=== PATIENT | male | born 1955 | race Caucasian/White ===

== ENCOUNTER 2020-05-15 01:20 | Inpatient (IN) ==
[2020-05-15] MEDS ORDERED: Naloxone 0.4 MG/ML INJ IVP PRN (01:42)
[2020-05-15] MEDS: Ondansetron 4 MG/2 ML VIAL IVP PRN ×3 (02:42→20:45)
[2020-05-15] MEDS: DilTIAZem 50 MG/50 ML IV.SOLN IVC SCH ×5 (03:34→23:02)
[2020-05-15 04:00] LABS: Basophils % 0.5 %; Eosinophils % 0.3 %; Hematocrit 46.6 % (37.5-50.1); Hemoglobin 14.9 g/dL (12.9-16.9); Immature Granulocytes % 0.3 % (0-4); Lymphocytes # 1.5 K/mcL (0.6-4.6); Lymphocytes % 17.2 %; Mean Corpuscular Hemoglobin 30.5 pg (28.0-33.3); Mean Corpuscular Volume 95.5 fL (83.0-100.0); Mean Platelet Volume 10.7 fL (9.4-12.4); Monocytes # 0.7 K/mcL (0.0-1.3); Monocytes % 7.3 %; Neutrophils # 6.6 K/mcL (1.6-8.9); Platelet Count 170 K/mcL (140-400); Red Blood Count 4.88 M/mcL (4.19-5.50); Red Cell Distribution Width 13.8 % (11.5-14.5); Segmented Neutrophils % 74.4 %; White Blood Count 8.9 K/mcL (4.3-11.1)
[2020-05-15] MEDS ORDERED: Perflutren Lipid Microsphere 1.3 ML in 0.9 % Sodium Chloride 8.7 ML IVP PRN (04:16)
[2020-05-15 04:22] LABS: Alanine Aminotransferase 91 Units/L (7-52); Albumin 3.9 g/dL (3.5-5.7); Albumin/Globulin Ratio 1.3 (1.1-2.2); Alkaline Phosphatase 99 Units/L (34-104); Aspartate Amino Transferase 54 Units/L (13-39); BUN/Creatinine Ratio 21 (6-26); Bilirubin,Total 0.8 mg/dL (0.3-1.0); Blood Urea Nitrogen 18 mg/dL (8-23); Calcium 9.3 mg/dL (8.6-10.3); Carbon Dioxide 33 mEq/L (23-29); Chloride 98 mEq/L (98-107); Globulin 3.1 g/dL (2.4-3.5); Glucose 139 mg/dL (70-105); Magnesium 1.7 mg/dL (1.6-2.6); Osmolality,Calculated 288 (280-300); Phosphorous 3.5 mg/dL (2.7-4.5); Potassium 3.6 mEq/L (3.5-5.1); Sodium 137 mEq/L (136-145); eGFR For African Americans > 60 (> 60); eGFR For Non-African Americans > 60 (> 60)
[2020-05-15 04:28] LABS: Troponin I 0.05 ng/mL (< 0.04)
[2020-05-15] MEDS ORDERED: *HR* Metoprolol 5 MG/5 ML VIAL IVP ONE ×4 (04:54→06:50)
[2020-05-15] MEDS: Acetaminophen 325 MG TABLET PO PRN ×3 (04:59→20:23)
[2020-05-15] MEDS ORDERED: *HR* Heparin 5,000 UNIT/ML VIAL SQ SCH (06:00)
[2020-05-15] MEDS ORDERED: *HR* Heparin 5,000 UNIT/ML VIAL IVP PRN ×2 (06:48)
[2020-05-15] MEDS ORDERED: Isovue-370 500 ML BOTTLE IVP ONE (06:48)
[2020-05-15] MEDS ORDERED: Ondansetron 4 MG/2 ML VIAL IVP ONE (06:50)
[2020-05-15 08:42] LABS: Estimated Average Glucose 143 mg/dl; Hemoglobin A1C 6.6 %
[2020-05-15] MEDS ORDERED: Ipratropium/Albuterol Neb 3 ML ONE (10:24)
[2020-05-15] MEDS: Heparin 25,000UNIT/250ML 1/2NS 25,000 UNIT/250 ML IV.SOLN IVC SCH (10:41)
[2020-05-15] MEDS: Ipratropium/Albuterol Neb 3 ML IH SCH ×2 (10:43→20:51)
[2020-05-15 10:54] LABS: Hematocrit 47.4 % (37.5-50.1); Hemoglobin 14.7 g/dL (12.9-16.9); Mean Corpuscular Hemoglobin 29.6 pg (28.0-33.3); Mean Corpuscular Volume 95.4 fL (83.0-100.0); Mean Platelet Volume 10.4 fL (9.4-12.4); Platelet Count 176 K/mcL (140-400); Red Blood Count 4.97 M/mcL (4.19-5.50); Red Cell Distribution Width 13.9 % (11.5-14.5); White Blood Count 9.4 K/mcL (4.3-11.1)
[2020-05-15 10:59] LABS: Heparin anti-factor XA UFH 0.26 IU/mL (0.30-0.70); INR 1.2; Prothrombin Time 14.2 Seconds (9.4-12.1)
[2020-05-15] MEDS ORDERED: Venlafaxine XR (24 HR) 75 MG CAP.ER.24H PO SCH ×2 (12:07→21:00)
[2020-05-15] MEDS ORDERED: *HR* Dextrose 50 % in Water (Vial) 50 ML VIAL IVP PRN (12:21)
[2020-05-15] MEDS ORDERED: Dextrose Gel 15 GM/37.5 ML TUBE PO PRN ×2 (12:21)
[2020-05-15] MEDS ORDERED: D5% in Water 1,000 ML IVC PRN (12:21)
[2020-05-15] MEDS: Venlafaxine XR (24 HR) 150 MG CAP.ER.24H PO SCH (13:28)
[2020-05-15] MEDS ORDERED: Furosemide 40 MG/4 ML VIAL IVP ONE (13:32)
[2020-05-15] MEDS: Insulin LISPRO 300 UNITS/3 ML VIAL SUBQ SCH ×2 (17:10→20:08)
[2020-05-15] MEDS: *HR* LORazepam 0.5 MG TABLET PO SCH (20:24)
[2020-05-16 00:30] LABS: BUN/Creatinine Ratio 21 (6-26); Blood Urea Nitrogen 19 mg/dL (8-23); Calcium 9.2 mg/dL (8.6-10.3); Carbon Dioxide 31 mEq/L (23-29); Chloride 99 mEq/L (98-107); Glucose 151 mg/dL (70-105); Magnesium 2.2 mg/dL (1.6-2.6); Osmolality,Calculated 289 (280-300); Potassium 4.2 mEq/L (3.5-5.1); Sodium 137 mEq/L (136-145); eGFR For African Americans > 60 (> 60); eGFR For Non-African Americans > 60 (> 60)
[2020-05-16] MEDS: DilTIAZem 50 MG/50 ML IV.SOLN IVC SCH (02:30)
[2020-05-16] MEDS: Acetaminophen 325 MG TABLET PO PRN ×3 (03:59→20:21)
[2020-05-16] MEDS: Ipratropium/Albuterol Neb 3 ML IH SCH ×2 (07:40→19:58)
[2020-05-16] MEDS: Insulin LISPRO 300 UNITS/3 ML VIAL SUBQ SCH ×4 (08:38→21:00)
[2020-05-16] MEDS: *HR* LORazepam 0.5 MG TABLET PO SCH ×2 (08:43→21:08)
[2020-05-16] MEDS: Aspirin Enteric Coated 81 MG Tablet PO SCH (08:43)
[2020-05-16] MEDS: Venlafaxine XR (24 HR) 150 MG CAP.ER.24H PO SCH (08:44)
[2020-05-16] MEDS: lisinopriL 5 MG TABLET PO SCH (08:45)
[2020-05-16] MEDS ORDERED: Furosemide 40 MG TABLET PO SCH (09:00)
[2020-05-16] MEDS ORDERED: *HR* Heparin 5,000 UNIT/ML VIAL IVP PRN (09:17)
[2020-05-16] MEDS ORDERED: Amiodarone Premix 150 MG/100 ML BAG IVPB ONE (09:19)
[2020-05-16] MEDS ORDERED: Amiodarone Premix 360 MG/200 ML BAG IVC ONE (09:19)
[2020-05-16] MEDS: Heparin 25,000UNIT/250ML 1/2NS 25,000 UNIT/250 ML IV.SOLN IVC SCH ×2 (11:53→15:47)
[2020-05-16] MEDS ORDERED: Furosemide 40 MG/4 ML VIAL IVP ONE (12:31)
[2020-05-16] MEDS: *HR* Metoprolol 5 MG/5 ML VIAL IVP PRN (16:54)
[2020-05-16] MEDS ORDERED: Warfarin perPT PO PRN (18:00)
[2020-05-16] MEDS ORDERED: *HR* Warfarin 5 MG TABLET PO ONE (18:00)
[2020-05-16] MEDS: *HR* Heparin 5,000 UNIT/ML VIAL IVP PRN (18:23)
[2020-05-16] MEDS: DilTIAZem 50 MG in 0.9 % Sodium Chloride 40 ML IVC SCH (19:26)
[2020-05-16] MEDS: Amiodarone Premix 360 MG/200 ML BAG IVC SCH (21:38)
[2020-05-17 00:41] LABS: Basophils # 0.1 K/mcL (0.0-0.2); Basophils % 0.6 %; Eosinophils # 0.2 K/mcL (0.0-0.6); Eosinophils % 2.1 %; Hematocrit 46.1 % (37.5-50.1); Hemoglobin 14.5 g/dL (12.9-16.9); INR 1.2; Immature Granulocytes % 0.2 % (0-4); Lymphocytes % 23.5 %; Mean Corpuscular HGB Conc 31.5 g/dL (31.6-35.5); Mean Corpuscular Hemoglobin 30.8 pg (28.0-33.3); Mean Corpuscular Volume 97.9 fL (83.0-100.0); Mean Platelet Volume 10.5 fL (9.4-12.4); Monocytes # 0.6 K/mcL (0.0-1.3); Monocytes % 7.1 %; Neutrophils # 5.7 K/mcL (1.6-8.9); Platelet Count 177 K/mcL (140-400); Prothrombin Time 13.7 Seconds (9.4-12.1); Red Blood Count 4.71 M/mcL (4.19-5.50); Red Cell Distribution Width 14.2 % (11.5-14.5); Segmented Neutrophils % 66.5 %; White Blood Count 8.6 K/mcL (4.3-11.1)
[2020-05-17 00:51] LABS: BUN/Creatinine Ratio 24 (6-26); Blood Urea Nitrogen 23 mg/dL (8-23); Calcium 8.9 mg/dL (8.6-10.3); Carbon Dioxide 33 mEq/L (23-29); Chloride 96 mEq/L (98-107); Glucose 120 mg/dL (70-105); Magnesium 1.9 mg/dL (1.6-2.6); Osmolality,Calculated 281 (280-300); Potassium 4.3 mEq/L (3.5-5.1); Sodium 133 mEq/L (136-145); eGFR For African Americans > 60 (> 60); eGFR For Non-African Americans > 60 (> 60)
[2020-05-17] MEDS: *HR* Metoprolol 5 MG/5 ML VIAL IVP PRN (02:08)
[2020-05-17] MEDS: DilTIAZem 50 MG in 0.9 % Sodium Chloride 40 ML IVC SCH (04:00)
[2020-05-17] MEDS: *HR* Heparin 5,000 UNIT/ML VIAL IVP PRN (07:15)
[2020-05-17] MEDS: Venlafaxine XR (24 HR) 150 MG CAP.ER.24H PO SCH (07:34)
[2020-05-17] MEDS: Aspirin Enteric Coated 81 MG Tablet PO SCH (07:34)
[2020-05-17] MEDS: lisinopriL 5 MG TABLET PO SCH (07:36)
[2020-05-17] MEDS: Acetaminophen 325 MG TABLET PO PRN ×2 (07:37→19:37)
[2020-05-17] MEDS: *HR* LORazepam 0.5 MG TABLET PO SCH ×2 (07:37→21:20)
[2020-05-17] MEDS: Insulin LISPRO 300 UNITS/3 ML VIAL SUBQ SCH ×4 (08:13→22:35)
[2020-05-17] MEDS ORDERED: Furosemide 40 MG/4 ML VIAL IVP SCH ×2 (09:00→21:00)
[2020-05-17] MEDS: Amiodarone Premix 360 MG/200 ML BAG IVC SCH ×2 (09:25→22:08)
[2020-05-17] MEDS: Heparin 25,000UNIT/250ML 1/2NS 25,000 UNIT/250 ML IV.SOLN IVC SCH (09:26)
[2020-05-17] MEDS: Ipratropium/Albuterol Neb 3 ML IH SCH ×2 (10:40→21:56)
[2020-05-17] MEDS: *HR* Digoxin 0.5 MG/2 ML AMPUL IVP SCH ×2 (11:42→17:51)
[2020-05-17] MEDS: Furosemide 40 MG/4 ML VIAL IVP SCH ×2 (14:43→21:00)
[2020-05-17 16:44] LABS: Magnesium 1.8 mg/dL (1.6-2.6); Potassium 4.3 mEq/L (3.5-5.1)
[2020-05-17] MEDS: Metoprolol XL (24 HR) Succ 50 MG TAB.ER.24H PO SCH (21:20)
[2020-05-18] MEDS: Heparin 25,000UNIT/250ML 1/2NS 25,000 UNIT/250 ML IV.SOLN IVC SCH (04:47)
[2020-05-18 05:00] LABS: Basophils % 0.7 %; Eosinophils # 0.2 K/mcL (0.0-0.6); Eosinophils % 3.1 %; Hematocrit 43.8 % (37.5-50.1); Hemoglobin 13.6 g/dL (12.9-16.9); Immature Granulocytes % 0.5 % (0-4); Lymphocytes # 1.5 K/mcL (0.6-4.6); Lymphocytes % 24.1 %; Mean Corpuscular HGB Conc 31.1 g/dL (31.6-35.5); Mean Corpuscular Hemoglobin 30.2 pg (28.0-33.3); Mean Corpuscular Volume 97.3 fL (83.0-100.0); Mean Platelet Volume 10.5 fL (9.4-12.4); Monocytes # 0.6 K/mcL (0.0-1.3); Neutrophils # 3.8 K/mcL (1.6-8.9); Platelet Count 159 K/mcL (140-400); Red Cell Distribution Width 14.1 % (11.5-14.5); Segmented Neutrophils % 62.6 %; White Blood Count 6.1 K/mcL (4.3-11.1)
[2020-05-18 05:07] LABS: Heparin anti-factor XA UFH 0.31 IU/mL (0.30-0.70); INR 1.2; Prothrombin Time 13.5 Seconds (9.4-12.1)
[2020-05-18 05:42] LABS: Alanine Aminotransferase 47 Units/L (7-52); Albumin 3.6 g/dL (3.5-5.7); Albumin/Globulin Ratio 1.4 (1.1-2.2); Alkaline Phosphatase 76 Units/L (34-104); Aspartate Amino Transferase 31 Units/L (13-39); BUN/Creatinine Ratio 23 (6-26); Bilirubin,Total 0.5 mg/dL (0.3-1.0); Blood Urea Nitrogen 21 mg/dL (8-23); Calcium 8.7 mg/dL (8.6-10.3); Carbon Dioxide 37 mEq/L (23-29); Chloride 94 mEq/L (98-107); Globulin 2.6 g/dL (2.4-3.5); Glucose 98 mg/dL (70-105); Magnesium 1.7 mg/dL (1.6-2.6); Osmolality,Calculated 285 (280-300); Potassium 3.6 mEq/L (3.5-5.1); Sodium 136 mEq/L (136-145); Total Protein 6.2 g/dL (6.4-8.9); eGFR For African Americans > 60 (> 60); eGFR For Non-African Americans > 60 (> 60)
[2020-05-18] MEDS: Acetaminophen 325 MG TABLET PO PRN (08:11)
[2020-05-18] MEDS: Metoprolol XL (24 HR) Succ 50 MG TAB.ER.24H PO SCH ×2 (08:39→20:46)
[2020-05-18] MEDS: *HR* LORazepam 0.5 MG TABLET PO SCH ×2 (08:40→20:46)
[2020-05-18] MEDS: Aspirin Enteric Coated 81 MG Tablet PO SCH (08:40)
[2020-05-18] MEDS: *HR* Digoxin 0.125 MG TABLET PO SCH (08:40)
[2020-05-18] MEDS: lisinopriL 5 MG TABLET PO SCH (08:41)
[2020-05-18] MEDS: Furosemide 40 MG/4 ML VIAL IVP SCH ×2 (08:42→20:46)
[2020-05-18] MEDS: Venlafaxine XR (24 HR) 150 MG CAP.ER.24H PO SCH (08:50)
[2020-05-18] MEDS: Amiodarone Premix 360 MG/200 ML BAG IVC SCH (10:37)
[2020-05-18] MEDS: Ipratropium/Albuterol Neb 3 ML IH SCH ×2 (11:25→22:47)
[2020-05-18] MEDS: Insulin LISPRO 300 UNITS/3 ML VIAL SUBQ SCH ×3 (12:04→20:38)
[2020-05-18] MEDS ORDERED: Lidocaine -MPF 2% 2 ML VIAL ONE (14:13)
[2020-05-18] MEDS ORDERED: *HR* Succinylcholine 200 MG/10 ML VIAL IVP ONE (14:14)
[2020-05-18] MEDS ORDERED: Lidocaine -MPF 4% 5 ML AMPUL ONE (14:15)
[2020-05-18] MEDS ORDERED: *HR* Etomidate 40 MG/20 ML VIAL IVP ONE (14:15)
[2020-05-18] MEDS ORDERED: *HR* FentaNYL (PF) 100 MCG/2 ML VIAL ONE (14:57)
[2020-05-18] MEDS ORDERED: EPHEDrine 50 MG/ML VIAL ONE (15:15)
[2020-05-18] MEDS ORDERED: *HR* Warfarin 7.5 MG TABLET PO ONE (18:00)
[2020-05-18] MEDS: *HR* Amiodarone 200 MG TABLET PO SCH (20:46)
[2020-05-19] MEDS: Heparin 25,000UNIT/250ML 1/2NS 25,000 UNIT/250 ML IV.SOLN IVC SCH ×4 (00:08→21:07)
[2020-05-19] MEDS: Acetaminophen 325 MG TABLET PO PRN ×3 (00:20→14:01)
[2020-05-19 04:19] LABS: INR 1.2; Prothrombin Time 13.7 Seconds (9.4-12.1)
[2020-05-19] MEDS: Insulin LISPRO 300 UNITS/3 ML VIAL SUBQ SCH ×4 (07:20→19:56)
[2020-05-19] MEDS: *HR* Digoxin 0.125 MG TABLET PO SCH (07:52)
[2020-05-19] MEDS: Venlafaxine XR (24 HR) 150 MG CAP.ER.24H PO SCH (07:52)
[2020-05-19] MEDS: Aspirin Enteric Coated 81 MG Tablet PO SCH (07:52)
[2020-05-19] MEDS: Furosemide 40 MG/4 ML VIAL IVP SCH (07:53)
[2020-05-19] MEDS: *HR* LORazepam 0.5 MG TABLET PO SCH ×2 (07:53→20:07)
[2020-05-19] MEDS: Metoprolol XL (24 HR) Succ 50 MG TAB.ER.24H PO SCH ×2 (07:53→20:07)
[2020-05-19] MEDS: *HR* Amiodarone 200 MG TABLET PO SCH ×2 (07:53→20:07)
[2020-05-19] MEDS: lisinopriL 5 MG TABLET PO SCH (07:53)
[2020-05-19] MEDS: Ipratropium/Albuterol Neb 3 ML IH SCH ×2 (10:49→22:44)
[2020-05-19 12:16] LABS: BUN/Creatinine Ratio 19 (6-26); Blood Urea Nitrogen 19 mg/dL (8-23); Calcium 8.9 mg/dL (8.6-10.3); Carbon Dioxide 38 mEq/L (23-29); Chloride 95 mEq/L (98-107); Glucose 111 mg/dL (70-105); Magnesium 1.6 mg/dL (1.6-2.6); Osmolality,Calculated 287 (280-300); Potassium 4.3 mEq/L (3.5-5.1); Sodium 137 mEq/L (136-145); eGFR For African Americans > 60 (> 60); eGFR For Non-African Americans > 60 (> 60)
[2020-05-19] MEDS: Furosemide 40 MG TABLET PO SCH ×2 (17:07→17:15)
[2020-05-19] MEDS ORDERED: *HR* Warfarin 7.5 MG TABLET PO SCH (18:00)
[2020-05-20 03:56] LABS: Basophils % 0.5 %; Eosinophils # 0.3 K/mcL (0.0-0.6); Eosinophils % 3.8 %; Hematocrit 41.2 % (37.5-50.1); Immature Granulocytes % 0.4 % (0-4); Lymphocytes # 1.6 K/mcL (0.6-4.6); Lymphocytes % 21.1 %; Mean Corpuscular HGB Conc 31.6 g/dL (31.6-35.5); Mean Corpuscular Volume 94.9 fL (83.0-100.0); Mean Platelet Volume 10.1 fL (9.4-12.4); Monocytes # 0.7 K/mcL (0.0-1.3); Monocytes % 8.8 %; Neutrophils # 4.8 K/mcL (1.6-8.9); Platelet Count 147 K/mcL (140-400); Red Blood Count 4.34 M/mcL (4.19-5.50); Red Cell Distribution Width 14.4 % (11.5-14.5); Segmented Neutrophils % 65.4 %; White Blood Count 7.4 K/mcL (4.3-11.1)
[2020-05-20 04:15] LABS: BUN/Creatinine Ratio 20 (6-26); Blood Urea Nitrogen 17 mg/dL (8-23); Calcium 8.6 mg/dL (8.6-10.3); Carbon Dioxide 39 mEq/L (23-29); Chloride 95 mEq/L (98-107); Glucose 103 mg/dL (70-105); INR 1.4; Osmolality,Calculated 284 (280-300); Potassium 4.1 mEq/L (3.5-5.1); Prothrombin Time 15.7 Seconds (9.4-12.1); Sodium 136 mEq/L (136-145); eGFR For African Americans > 60 (> 60); eGFR For Non-African Americans > 60 (> 60)
[2020-05-20] MEDS: Acetaminophen 325 MG TABLET PO PRN (05:55)
[2020-05-20] MEDS: Ipratropium/Albuterol Neb 3 ML IH SCH (07:35)
[2020-05-20] MEDS: Insulin LISPRO 300 UNITS/3 ML VIAL SUBQ SCH ×2 (07:50→11:50)
[2020-05-20] MEDS: Aspirin Enteric Coated 81 MG Tablet PO SCH (08:45)
[2020-05-20] MEDS: *HR* Amiodarone 200 MG TABLET PO SCH (08:46)
[2020-05-20] MEDS: Metoprolol XL (24 HR) Succ 50 MG TAB.ER.24H PO SCH (08:46)
[2020-05-20] MEDS: Venlafaxine XR (24 HR) 150 MG CAP.ER.24H PO SCH (08:46)
[2020-05-20] MEDS: *HR* LORazepam 0.5 MG TABLET PO SCH (08:46)
[2020-05-20] MEDS: *HR* Digoxin 0.125 MG TABLET PO SCH (08:47)
[2020-05-20] MEDS: lisinopriL 5 MG TABLET PO SCH (08:48)
[2020-05-20] MEDS ORDERED: Furosemide 40 MG TABLET PO SCH (09:38)
[2020-05-20] MEDS: *HR* Heparin 5,000 UNIT/ML VIAL IVP PRN (10:42)
[2020-05-20 10:59] VITALS: BP 188/71
[2020-05-20] MEDS ORDERED: *HR* Enoxaparin 100 MG/ML SYRINGE SQ SCH (18:00)
[2020-05-20] MEDS ORDERED: *HR* Warfarin 7.5 MG TABLET PO ONE (18:00)
== END 2020-05-20 16:25 | disposition home or self-care (01) | DRG 308 ==
LOC: 2ANU → SUATTDRO 01:20 → 2NNU 05-16 14:44
PROVIDERS: ADMIT Internal Medicine; ATTEND General Practice